=== PATIENT | female | born 1975 | race Caucasian/White ===

== ENCOUNTER 2021-11-04 13:33 | Outpatient (CLI) | payer OTHER, SELFPAY ==
[2021-11-04 14:01] LABS: CRP 2.5 mg/dL (<1.0)
[2021-11-04 14:22] LABS: Erythrocyte Sedimentation Rate 27 mm/hr (0-20)
[2021-11-08 14:06] LABS: Tissue Transglutaminase IgG Ab <1.0 U/mL (<15.0)
[2021-11-10 10:33] LABS: Tissue Transglutaminase IgA Ab <1.0 U/mL (<15.0)
== END 2021-11-04 13:34 | disposition home or self-care (01) ==
LOC: ANHLAB 13:35
PROVIDERS: PCP Family Medicine; Visit Provider Internal Medicine Gastroenterology
DX: R19.7 Diarrhea, unspecified (principal)
CPT/HCPCS: 36415; 83516; 85652; 86140

== ENCOUNTER 2022-01-19 00:26 | Day surgery (SDC) | payer OTHER, SELFPAY ==
[2022-01-10 12:44] VITALS: BMI 43.2
[2022-01-19 07:58] VITALS: BP 160/98; PULSE 95; RESP 20; TEMP 36.3
--- NOTE | 2022-01-19 08:05 | WPDANESEPPF ---
Anes - Initial Pre Proc Eval Procedure: Operation Date: 01/19/22 09:00 Proposed Procedures p Colonoscopy - Nahun Schaefer MD s [facility] Hemorrhoid Treatment - Nahun Schaefer MD Date/Time: 01/19/22 08:05 Surgeon: Nahun Schaefer MD Pre Op Diagnosis: bloody stool, diarrhea, hemorrhoids Patient Data Age: 46 Gender: F Height: 1.73 m Weight: 126.4 kg Last Vital Signs Temp 36.3 C L 01/19/22 07:58 Pulse 95 01/19/22 07:58 Resp 20 01/19/22 07:58 BP 160/98 H 01/19/22 07:58 Allergies Allergy/AdvReac Type Severity Reaction Status Date / Time No Known Allergies Allergy Verified 01/19/22 07:55 Home Medications Medication Instructions Recorded Confirmed Type amlodipine 10 mg tablet 10 mg PO DAILY 11/04/21 01/10/22 History hydrocortisone acetate 25 mg 25 mg RECTAL BID #12 ea 11/04/21 01/10/22 Rx rectal suppository Patient hx anesthesia problems: none Family hx anesthesia problems: none Results Review: All pre-operative results and documents have been reviewed as part of the pre-operative evaluation. [facility]LY [facility] Past Medical History Medical History Anxiety Blood in stool Diarrhea Hemorrhoid Hypertension Obesity, morbid, BMI 40.0-49.9 Social History Social History Smoking status: Never smoker Alcohol intake: current Drinks per week: 2 Alcohol use details: social Substance use: never Substance use type: does not use Living arrangements: with family Spiritual care concerns: No Anes - Eval Final PreProcedure Day of Procedure 01/19/22 08:05 Patient weight: morbidly obese Heart: regular rate and rhythm Lungs: clear to auscultation Airway: Mallampati scale class II Neurological: alert and oriented Last oral intake: >/= 8 hours ASA classification: III Emergent: no Anesthetic plan: proceed Anesthesia type and monitoring: general GIVS and standard monitoring Results Review: All pre-operative results and documents have been reviewed as part of the pre-operative evaluation. Informed Consent: The patient's anesthetic plan and its attendant risks and benefits were discussed with the patient/family/POA. Questions were solicited and answers provided to the satisfaction of the patient/family/POA.
[2022-01-19] MEDS: LACTATED RINGERS 1,000 ML 150 ML IV CONT (08:10)
--- NOTE | 2022-01-19 08:45 | PM.HPGS ---
History of Present Illness History of Present Illness Consent: Risks, benefits, and alternatives have been discussed and questions answered. Patient agrees to proceed with procedure. Chief complaint: bloody stool, diarrhea, hemorrhoids Narrative: Bonny Herrera is a 46 year old female here for first screening colonoscopy, also had hemorrhoids for which tried topical treatment Review of Systems Constitutional: Constitutional: Denies headache(s) and Denies weakness Eyes: Eyes: Denies blurry vision ENT: Reports Normal hearing present, Denies headache(s) and Denies neck pain Cardiovascular: Cardiovascular: Denies chest pain and Denies dyspnea Respiratory: Respiratory: Denies dyspnea Gastrointestinal: Gastrointestinal: Reports no additional gastrointestinal complaints Genitourinary: Genitourinary: Denies dysuria Musculoskeletal: Musculoskeletal: Denies neck pain Integumentary/Breasts: Skin/Breast: Denies dry skin Neurologic: Reports Normal hearing present, Denies headache(s) and Denies weakness Psychiatric: Psychiatric: Denies anxiety Endocrine: Endocrine: Denies change in body appearance Hematologic/Lymphatic: Hematologic/Lymphatic: Denies easy bleeding Allergic/Immunologic: Allergic/Immunologic: Denies urticaria PMFSH Past Medical History Medical History (Updated 01/19/22 @ 08:46 by Nahun Schaefer MD) Anxiety Blood in stool Colon cancer screening Diarrhea Hemorrhoid Hypertension Obesity, morbid, BMI 40.0-49.9 Social History Social History Smoking status: Never smoker Alcohol intake: current Drinks per week: 2 Alcohol use details: social Substance use: never Substance use type: does not use Living arrangements: with family Spiritual care concerns: No Meds Home Medications and Allergies Home Medications Medication Instructions Recorded Confirmed Type amlodipine 10 mg tablet 10 mg PO DAILY 11/04/21 01/10/22 History hydrocortisone acetate 25 mg 25 mg RECTAL BID #12 ea 11/04/21 01/10/22 Rx rectal suppository Allergies Allergy/AdvReac Type Severity Reaction Status Date / Time No Known Allergies Allergy Verified 01/19/22 07:55 Vital Signs Vital Signs - 24 hr 01/19/22 07:58 Temperature 97.3 F L Pulse Rate 95 Respiratory Rate 20 Blood Pressure 160/98 H Exam Const: General: comfortable and no acute distress HENMT: General nose exam: Normal nares present Eyes: General: appearance normal, both eyes and all related structures Neck: Neck: no JVD Resp: Auscultation: clear to auscultation bilaterally Cardio: Rate: regular rate Rhythm: regular rhythm GI: Inspection: non-distended GI Palp: Yes Soft to palpation Skin: General skin exam: normal color Neuro: General: gait normal Speech: normal speech Extrem: General: normal to inspection Psych: Mental Status: mental status grossly normal Assessment and Plan Assessment and plan (1) Hemorrhoid: Code(s): K64.9 - Unspecified hemorrhoids Status: Acute Assessment and Plan: will treat with irc (2) Colon cancer screening: Code(s): Z12.11 - Encounter for screening for malignant neoplasm of colon Status: Acute Assessment and Plan: colonoscopy
--- NOTE | 2022-01-19 09:06 | SUR.OPER ---
Colonoscopy completed at 0902 and IRC of hemorrhoids performed.
[2022-01-19 09:09] VITALS: BP 124/73; PULSE 87; RESP 20; O2SAT 98
--- NOTE | 2022-01-19 09:11 | W.PM.PROC2 ---
Procedure Note - Detailed Date of Procedure 01/19/22 Pre-op Diagnosis bloody stool, diarrhea, hemorrhoids Post-op Diagnosis Same Procedure Performed IRC of hemorrhoids Surgeon Nahun Schaefer MD Indications internal hemorrhoids Description of Procedure Skin tags, no anal fissure, grade II internal hemorrhoids without bleeding. Then introduced anoscopy and advanced IRC probe, hemorrhoids treated at 1.5 second each time x6, no complications Condition Stable
[2022-01-19 09:19] VITALS: BP 134/92; PULSE 82; RESP 19; O2SAT 97
[2022-01-19 09:29] VITALS: BP 132/93; PULSE 86; RESP 19; O2SAT 98
== END 2022-01-19 09:37 | disposition home or self-care (01) ==
PROVIDERS: PCP Family Medicine; Visit Provider Internal Medicine Gastroenterology
PROC: 0DJD8ZZ Inspection of Lower Intestinal Tract, Via Natural or Artificial Opening Endoscopic (ICD-10-PCS; CPT 45378; principal; 2022-01-19 09:00)
PROC: (CPT 46930; 2022-01-19 09:00)
DX: Z12.11 Encounter for screening for malignant neoplasm of colon (principal); K92.1 Melena; D12.2 Benign neoplasm of ascending colon; R19.7 Diarrhea, unspecified; K57.30 Diverticulosis of large intestine without perforation or abscess without bleeding; K64.8 Other hemorrhoids; I10 Essential (primary) hypertension; E66.01 Morbid (severe) obesity due to excess calories
CPT/HCPCS: 45385; 46930; 88305; J2704; J7120

== ENCOUNTER 2022-03-15 15:13 | Outpatient (CLI) | payer OTHER, SELFPAY ==
--- NOTE | 2022-03-15 15:20 | ECG_ITS ---
Measurements Intervals [place] Rate: 87 P: 29 AK: 154 QRS: 81 QRSD: 99 T: 4 QT: 363 QTc: 437 Interpretive Statements SINUS RHYTHM WITH SINUS ARRHYTHMIA DELAYED PRECORDIAL R/S TRANSITION MINIMAL Q WAVES- INFERIOR LEADS BORDERLINE ST-T WAVE ABNORMALITY- INFERIOR LEADS BASELINE ARTIFACT- I, V6 BORDERLINE ECG Electronically Signed On 03-15-2022 16:24:32 CDT by Daryl Cisse D.O.
== END 2022-03-15 15:14 | disposition home or self-care (01) ==
LOC: ANHSURGERY 15:15
PROVIDERS: PCP Family Medicine; Visit Provider Surgery
DX: Z01.818 Encounter for other preprocedural examination (principal); I10 Essential (primary) hypertension
CPT/HCPCS: 93005

== ENCOUNTER 2022-03-18 00:47 | Day surgery (SDC) | payer OTHER, SELFPAY ==
[2022-03-10 14:26] VITALS: BMI 43.3
--- NOTE | 2022-03-10 14:35 | PC.NURSE ---
-Report to the Outpatient Waiting Room, entrance under the green pavilion located off [facility], at time 1000 on date 03/18/2022. OR Time: 1200. - You and your visitor will be asked a series of questions to screen for COVID 19 for your protection. - Only one visitor is allowed at this time. - The patient visitor is requested to leave or wait in car when not with patient. - A mask is required within the hospital. - Nothing by mouth after midnight on , 03/17/[address] Matt's instructions. -Continue home medications per Dr. Matt's instructions. -Hold vitamins 3 days prior to surgery per anesthesiologist. Please no make-up, nail tristanian, hairspray, perfume, deodorant, or body powder the day of surgery. No jewelry (including any body piercings) or valuables the day of surgery, leave them at home. Please take a shower or bath the night before, or the morning of, surgery with an antibacterial soap. Wear comfortable, loose fitting clothing. - Jewelry must be removed prior to entering the operating room. Rings and piercings that are not removed may be cut off. - The hospital will not accept responsibility for valuables. - Please leave all valuables, including medications, at home the day of surgery. If you are going home after surgery, a licensed coach tour driver must drive you home. - NO public transportation without another adult. - We recommend that an adult stay with you for 24 hours following discharge. - We also recommend that you do not drive, make important decision, drink alcoholic beverages, or take any drugs that were not prescribed by your health care provider for at least 24 hours after your discharge time. Follow any additional instructions given to you from your surgeon. If you or anyone in your household have experienced Covid symptoms in the past week, please notify your surgeon or the nurse liaison at the phone number below for possible testing. Telephone instructions given to patient and asked if any additional questions and then verbalized understanding. Patient advised to call surgeon office or pre surgery nurse liaison [phone] if any additional questions.
[2022-03-18] VITALS (8 sets, daily range): BP systolic 126–155; BP diastolic 78–88; PULSE 57–108; RESP 11–18; TEMP 36.4; O2SAT 99–100
[2022-03-18 10:03] LABS: SARS-CoV-2 RNA PCR Negative
[2022-03-18] MEDS: LACTATED RINGERS 1,000 ML 30 ML IV CONT ×2 (10:42→12:53)
[2022-03-18] MEDS: ACETAMINOPHEN 500 MG TABLET 1000 MG PO (10:44)
[2022-03-18] MEDS: KETOROLAC 15 MG/ML VIAL (*BKC) IV PUSH (10:45)
--- NOTE | 2022-03-18 11:16 | P.PNAN_ITS ---
Anes - Initial Pre Proc Eval Procedure: Operation Date: 03/18/22 12:00 Proposed Procedures p Rectal Examination Under Anesthesia, Excision of Anal Skin Tags - Shane Matt DO Date/Time: 03/18/22 11:16 Surgeon: Shane Matt DO Pre Op Diagnosis: residual hemorrhoidal skin tags Patient Data Age: 46 Gender: F Height: 1.73 m Weight: 121 kg Last Vital Signs Temp 97.6 F 03/18/22 10:31 Pulse 57 L 03/18/22 10:31 Resp 18 03/18/22 10:31 BP 155/87 H 03/18/22 10:31 Pulse Ox 100 03/18/22 10:31 O2 Del Method Room Air 03/18/22 10:31 Allergies Allergy/AdvReac Type Severity Reaction Status Date / Time No Known Allergies Allergy Verified 03/18/22 10:29 Home Medications Medication Instructions Recorded Confirmed Type amlodipine 10 mg tablet 10 mg PO DAILY 11/04/21 03/18/22 History ergocalciferol (vitamin D2) 1,250 1 cap PO WEEKLY 03/10/22 03/18/22 History mcg (50,000 unit) capsule (Vitamin D2) multivitamin with minerals-folic 1 tablet PO DAILY 03/10/22 03/18/22 History acid 0.4 mg tablet Laboratory Tests 03/18/22 08:59 SARS-CoV-2 RNA (RT-PCR) Negative Patient hx anesthesia problems: none Family hx anesthesia problems: none Results Review: All pre-operative results and documents have been reviewed as part of the pre- operative evaluation. FORMERLY [facility] Past Medical History Medical History Anxiety Blood in stool Colon cancer screening Diarrhea Hemorrhoid Hypertension Obesity, morbid, BMI 40.0-49.9 Surgical History Surgical History H/O knee surgery H/O myomectomy History of endometrial ablation Social History Social History Smoking status: Never smoker Second hand tobacco smoke exposure: No Alcohol intake: current Drinks per week: 2 Alcohol use details: 2 DRINKS/MONTH Substance use: never Substance use type: does not use Spiritual care concerns: No Anes - Eval Final PreProcedure Day of Procedure 03/18/22 11:16 Patient weight: morbidly obese Heart: regular rate and rhythm Lungs: clear to auscultation Airway: Mallampati scale class II Neurological: alert and oriented Last oral intake: >/= 8 hours ASA classification: III Emergent: no Anesthetic plan: proceed Anesthesia type and monitoring: general ETT (prone positioning) and standard monitoring Results Review: All pre-operative results and documents have been reviewed as part of the pre- operative evaluation. Informed Consent: The patient's anesthetic plan and its attendant risks and benefits were discussed with the patient/family/POA. Questions were solicited and answers provided to the satisfaction of the patient/family/POA.
--- NOTE | 2022-03-18 11:43 | WPDHPUPDATE1 ---
History and Physical Update Update Date/Time: 03/18/22 11:43 History and Physical has been reviewed, including an updated exam of the patient. There are NO changes in the patient's condition. Risks, benefits, and alternatives have been discussed and questions answered. Patient agrees to proceed with procedure.
[2022-03-18] MEDS: ceFAZolin 3 GM/D5W 100 ML 100 ML IVPB (12:02)
--- NOTE | 2022-03-18 12:53 | W.PM.PROC2 ---
Procedure Note - Detailed Date of Procedure 03/18/22 Pre-op Diagnosis residual hemorrhoidal skin tags Post-op Diagnosis Other (External anal skin tag, internal and external hemorrhoids) Procedure Performed 1. Rectal exam under anesthesia 2. Internal and external hemorrhoidectomy x1 column 3. Excision of external anal skin tag x1 Surgeon Shane Matt, DO Anesthesia General and Local (Exparel) Indications This is a 46-year-old woman who presented with external hemorrhoid skin tags. She was experiencing burning pain and irritation along with difficulty with wiping due to large external hemorrhoid skin tags. She has a prior history of internal hemorrhoid infrared coagulation for bleeding. She was found to have a large left lateral and right anterior external hemorrhoid skin tag on exam. Discussions were made with the patient about treatment options and decision was made to proceed with rectal exam under anesthesia with excision of external hemorrhoid skin tags. Findings Rectal exam under anesthesia was performed. In the left lateral region patient was found to have a large anal skin tag but did not have any significant internal hemorrhoids prolapsing with this. This external anal skin tag was excised and sent for pathology. She also had a right anterior external hemorrhoid and also had prolapsing internal hemorrhoid tissue in this region. Decision was made to proceed with excision of internal and external hemorrhoid in the right anterior location. No other rectal abnormalities were identified. Description of Procedure Procedure as well as risks, benefits, and alternatives were discussed with the patient. Written consent was obtained and placed in chart prior to procedure. Patient was brought back to surgical suite. She was lying supine on her hospital stretcher. Time-out was done to confirm patient and procedure. She was then intubated by anesthesia department. She was then repositioned into a prone deandra-knife position on the operating table. Her perirectal region was prepped and draped in sterile fashion using Betadine prep. Digital rectal exam was initially performed. The perirectal region was then anesthetized with Exparel. A medium-sized Hill-Stacy anoscope was then inserted in the anal rectal canal was carefully inspected. The left lateral anal skin tag was excised using a 15 blade scalpel. Electrocautery was used for hemostasis. The area was irrigated with sterile saline. The anoderm was then reapproximated using 2-0 chromic simple interrupted sutures. I then repositioned the anoscope and identified the right anterior area. There appeared to be prolapsing internal hemorrhoid tissue along with an external hemorrhoid. A 2-0 chromic [id number] suture was placed at the apex of the internal hemorrhoid bundle. An elliptical incision was then made around the external hemorrhoid tissue and then this was extended proximally into the internal hemorrhoid tissue. A clamp was then placed across the internal hemorrhoid bundle and this was excised using curved Metzenbaum scissors. The 2-0 chromic suture was then run distally from the apex around the clamp to the edge of the anal verge and then the clamp was removed and the suture was pulled taut. The suture was then run back proximally to the apex of the hemorrhoid bundle and this was tied down in place. The area was irrigated with sterile saline and hemostasis appeared adequate. The anoderm was then reapproximated using 2-0 chromic simple interrupted sutures. One final inspection was made around the anorectal canal and no other abnormalities were noted. The anoscope was then removed. Xeroform gauze was then applied followed by fluff gauze, ABD pad, and mesh underwear. The patient was then awakened from anesthesia, extubated, and transferred to recovery. Estimated Blood Loss 10 Packing Yes (Xeroform gauze) Complications No immediate complications Condition Stable Disposition Same
[2022-03-18] MEDS: oxyCODONE HCL (*CRX) 5 MG TAB IR PO (13:50)
== END 2022-03-18 14:52 | disposition home or self-care (01) ==
PROVIDERS: PCP Family Medicine; Visit Provider Surgery
PROC: (CPT 46255; principal; 2022-03-18 12:00)
DX: K64.4 Residual hemorrhoidal skin tags (principal); Z20.822 Contact with and (suspected) exposure to COVID-19; Z86.010 Personal history of colon polyps; F41.9 Anxiety disorder, unspecified; I10 Essential (primary) hypertension; E66.01 Morbid (severe) obesity due to excess calories; Z68.41 Body mass index [BMI] 40.0-44.9, adult; L91.8 Other hypertrophic disorders of the skin; L29.0 Pruritus ani
CPT/HCPCS: 46255; 88304; 93005; A9270; C9290; C9803; J0330; J0690; J1100; J1885; J2250; J2405; J2704; J3010; J7120; U0003; U0005